=== PATIENT | male | born 1930 | race Caucasian/White ===

== ENCOUNTER 2016-06-28 19:40 | Inpatient (IN) ==
[2016-06-28] MEDS ORDERED: SODIUM CHLORIDE 1,000 ML IV STA (20:20)
--- NOTE | 2016-06-28 20:24 | ED.PDOC ---
General ED Provider: Dr. JONAS HWANG Chief Complaint: Fall Stated Complaint: Holden is a who comes to the ER by ambulace after family went to the home saw him from the window laying down on the floor. They called the police who came with EMS broke the door open found him awake but blood glucose was unable to read since it was too high and blood pressure was high in the 180s. He denied any pain. Does not know when he fell and states he had a red bull and used his morning insluin. Per daughter he has frequent falls and wishes he be placed in the long term. Time Seen by Physician: 20:22 Mode of Arrival: Ambulance Information Source: Patient, EMT Primary Care Provider: JAREK ALBA Nursing and Triage Documentation Reviewed and Agree: Yes Review of Systems - Review Of Systems Constitutional: Reports: Weakness, Loss of appetite Respiratory: Reports: No symptoms Cardiac: Reports: No symptoms GI: Reports: No symptoms : Reports: No symptoms Musculoskeletal: Reports: Other (falls) Skin: Reports: Rash (Seborrheic dermatitis ) Neurological: Reports: Anxiety, Cognitive dysfunction (Mild cognitive imparement ) All Other Systems: Reviewed and Negative Past Medical History - Past Medical History Previously Healthy: No Endocrine: Reports: DM 2 Cardiovascular: Reports: Hypertension Respiratory: Reports: None Hematological: Reports: None Gastrointestinal: Reports: None Genitourinary: Reports: None Neuro/Psych: Reports: None Musculoskeletal: Reports: None Cancer: Reports: None Other Pertinent Past Medical History: Multiple falls. - Surgical History General Surgical History: Reports: None - Family History Family History: Reports: Unknown - Social History Smoking Status: Never smoker Hx Substance Use: No Alcohol Screening: None Pt Occupation: Retired Lives: Alone - Immunizations Tetanus Shot up to Date: No Physical Exam - Physical Exam Appearance: Ill-appearing Ill-appearing: Moderate Eyes: LÓPEZ, EOMI, Conjunctiva clear ENT: Dry mucosa Neck: Supple Respiratory: Airway patent, Breath sounds clear, Breath sounds equal, Respirations nonlabored Cardiovascular: RRR, Pulses normal, No rub, No murmur GI/: Soft, Nontender Musculoskeletal: Normal strength, ROM intact, No edema, No calf tenderness Skin: Warm, Dry Neurological: Alert, Oriented (x 2) Psychiatric: Anxious Interpretation - Radiology Interpretation Radiology Interpretation By: Radiologist Radiology Results: Positive Exam Interpreted: CT Scan (chest with Bilateral Pneumonia. ), Other (CT head no fracture. ) Physician Notification - Case Discussed Physician Notified: Luis Time of Notification: 22:58 (Admit To SCU ) Critical Care Note - Critical Care Note Total Time (mins): 55 Course - Course Hematology/Chemistry: 06/28/16 20:40 06/29/16 01:15 Orders, Labs, Meds: Lab Review 06/28/16 06/28/16 06/28/16 20:16 20:40 21:35 WBC 7.81 RBC 4.40 L Hgb 14.0 Hct 37.6 L MCV 85.5 MCH 31.8 H MCHC 37.2 H RDW Coeff of Elías 12.3 Plt Count 153 Immature Gran % (Auto) 0.5 Neut % (Auto) 74.9 Lymph % (Auto) 12.3 [place] % (Auto) 12.0 H Eos % (Auto) 0.0 Baso % (Auto) 0.3 Immature Gran # (Auto) 0.0 Neut # 5.9 Lymph # 1.0 [place] # 0.9 Eos # 0.0 Baso # 0.0 Puncture Site Lrad O2 Saturation 95.0 ABG pH 7.427 ABG pCO2 23.0 L ABG pO2 69.0 L ABG HCO3 15.2 L ABG Total CO2 16 L ABG Base Excess -9 L Kemal Test + FiO2 % 21.0 Sodium 126 L Potassium 5.4 H Chloride 94 L Carbon Dioxide 15 L Anion Gap 22.4 BUN 77 H* Creatinine 3.06 H Estimated GFR (MDRD) 20.00 BUN/Creatinine Ratio 25.16 Glucose 745 H* Lactic Acid 29.2 H Calcium 9.3 Total Bilirubin 1.03 AST 33 ALT 36 Alkaline Phosphatase 63 Total Creatine Kinase 317 CK-MB (CK-2) 5.8 H* CK-MB (CK-2) % 1.76060 Troponin I 0.0480 Total Protein 7.6 Albumin 3.4 Globulin 4.2 Albumin/Globulin Ratio 0.81 Amylase 30 Lipase 36 Procalcitonin 0.31 Urine Color Dark Urine Clarity Clear Urine pH 5.0 Ur Specific [place] 1.020 Urine Protein 2+ Urine Glucose (UA) 2+ Urine Ketones Trace Urine Blood 1+ Urine Nitrite Negative Urine Bilirubin Negative Urine Urobilinogen 0.2 Ur Leukocyte Esterase Negative Urine Microscopic RBC 2-5 Ur Squamous Epith Cells 2-5 Amorphous Sediment 2+ Urine Bacteria Trace Hyaline Casts 2-5 Granular Casts 5-10 Orders Category Date Time Status ADMIT PATIENT INPATIENT .TO SCU (MONITORED BED) ADMISSION 06/28/16 23:06 Completed ABG DRAW REQUEST Stat CARDIO 06/28/16 20:18 Completed EKG-(ED ONLY) Stat CARDIO 06/28/16 20:18 Completed ACTIVITY .BR with BRP CARE 06/28/16 23:08 Active BLOOD GLUCOSE MONITORING Q1HR CARE 06/28/16 23:04 Active CASE MANAGEMENT CONSULT ONCE CARE 06/28/16 23:06 Active GIVE HS SNACK 2100 CARE 06/28/16 23:11 Active INTAKE & OUTPUT Q8HR CARE 06/28/16 23:06 Active TELEMETRY MONITORING TELE CARE 06/28/16 23:07 Active VITAL SIGNS Q4HR CARE 06/28/16 23:08 Active ADA 1800 EDILSON. DIET DIETARY 06/28/16 Breakfast Ordered HS SNACK DIETARY 06/28/16 Dinner Ordered ED ACCUCHECK ASSESSMENT .ONCE EMERGENCY 06/28/16 22:54 Active ED IV/MEDIPORT/POWERPORT .ONCE EMERGENCY 06/28/16 20:20 Active ABG Stat LAB 06/28/16 20:16 Completed AMYLASE Stat LAB 06/28/16 20:40 Completed BASIC METABOLIC PANEL Q4HR LAB 06/29/16 01:15 Completed BASIC METABOLIC PANEL Q4HR LAB 06/29/16 05:00 Ordered BASIC METABOLIC PANEL Q4HR LAB 06/29/16 09:00 Ordered BASIC METABOLIC PANEL Q4HR LAB 06/29/16 13:00 Ordered BASIC METABOLIC PANEL Q4HR LAB 06/29/16 17:00 Ordered BASIC METABOLIC PANEL Q4HR LAB 06/29/16 21:00 Ordered BASIC METABOLIC PANEL Q4HR LAB 06/30/16 01:00 Ordered BASIC METABOLIC PANEL Q4HR LAB 06/30/16 05:00 Ordered BLOOD CULTURE Stat LAB 06/28/16 23:00 Received CBC W/ AUTO DIFF DAILY@0600 LAB 06/29/16 06:00 Ordered CBC W/ AUTO DIFF DAILY@0600 LAB 06/30/16 06:00 Ordered CBC W/ AUTO DIFF DAILY@0600 LAB 07/01/16 06:00 Ordered CBC W/ AUTO DIFF DAILY@0600 LAB 07/02/16 06:00 Ordered CBC W/ AUTO DIFF DAILY@0600 LAB 07/03/16 06:00 Ordered CBC W/ AUTO DIFF DAILY@0600 LAB 07/04/16 06:00 Ordered CBC W/ AUTO DIFF DAILY@0600 LAB 07/05/16 06:00 Ordered CBC W/ AUTO DIFF DAILY@0600 LAB 07/06/16 06:00 Ordered CBC W/ AUTO DIFF DAILY@0600 LAB 07/07/16 06:00 Ordered CBC W/ AUTO DIFF DAILY@0600 LAB 07/08/16 06:00 Ordered CBC W/ AUTO DIFF DAILY@0600 LAB 07/09/16 06:00 Ordered CBC W/ AUTO DIFF DAILY@0600 LAB 07/10/16 06:00 Ordered CBC W/ AUTO DIFF DAILY@0600 LAB 07/11/16 06:00 Ordered CBC W/ AUTO DIFF DAILY@0600 LAB 07/12/16 06:00 Ordered CBC W/ AUTO DIFF DAILY@0600 LAB 07/13/16 06:00 Ordered CBC W/ AUTO DIFF DAILY@0600 LAB 07/14/16 06:00 Ordered CBC W/ AUTO DIFF DAILY@0600 LAB 07/15/16 06:00 Ordered CBC W/ AUTO DIFF DAILY@0600 LAB 07/16/16 06:00 Ordered CBC W/ AUTO DIFF DAILY@0600 LAB 07/17/16 06:00 Ordered CBC W/ AUTO DIFF DAILY@0600 LAB 07/18/16 06:00 Ordered CBC W/ AUTO DIFF Stat LAB 06/28/16 20:40 Completed COMPREHENSIVE METABOLIC PANEL Stat LAB 06/28/16 20:40 Completed CREATINE KINASE Stat LAB 06/28/16 20:40 Completed LACTIC ACID Stat LAB 06/28/16 20:40 Completed LIPASE Stat LAB 06/28/16 20:40 Completed PROCALCITONIN Stat LAB 06/28/16 20:40 Completed TROPONIN I Stat LAB 06/28/16 20:40 Completed UA [URINALYSIS C & S IF INDICATED] Stat LAB 06/28/16 21:35 Completed 0.9 % Sodium Chloride [Saline Flush] MEDS 06/28/16 20:20 Ordered 1 syr IVF PRN PRN 0.9 % Sodium Chloride [Sodium Chloride] 100 ml MEDS 06/28/16 23:15 Ordered Insulin Regular, Human [Humulin R] 100 unit IV 5 unit/hr Amlodipine Besylate [Norvasc] MEDS 06/29/16 09:00 Ordered 5 mg PO DAILY Azithromycin [Zithromax] MEDS 04/27/17 23:06 Discontinued 500 mg PO ONCE STA Ceftriaxone Sodium [Rocephin] MEDS 06/28/16 23:03 Discontinued 1 gm .ROUTE .STK-MED ONE Ceftriaxone Sodium [Rocephin] 1 gm MEDS 06/28/16 22:53 Discontinued 0.9 % Sodium Chloride [Sodium Chloride] 50 ml IV ONCE Enoxaparin Sodium [Lovenox] MEDS 06/29/16 09:00 Ordered 30 mg SUBCUT DAILY Losartan Potassium [Cozaar] MEDS 06/29/16 09:00 Ordered 25 mg PO DAILY Omeprazole [Prilosec] MEDS 06/29/16 09:00 Ordered 20 mg PO DAILY Ondansetron HCl/Pf [Zofran 4 mg/2 ml] MEDS 06/28/16 23:06 Ordered 4 mg IVP Q6H PRN Sodium Chloride 0.9% [Sodium Chloride] 1,000 ml MEDS 06/28/16 23:30 Ordered IV 150 mls/hr Sodium Chloride 0.9% [Sodium Chloride] 1,000 ml MEDS 06/28/16 20:20 Discontinued IV BOLUS RESUSCITATION STATUS Routine OTHERS 06/28/16 23:[address] ABDOMEN/PELVIS WO CONTRAST Stat RADS 06/28/16 21:[address] CERVICAL SPINE W/O CONTRAST Stat RADS 06/28/16 20:[address] CHEST W/O CONTRAST Stat RADS 06/28/16 21:[address] HEAD W/O CONTRAST Stat RADS 06/28/16 20:18 Completed OT CONSULTATION Routine THERAPIES 06/28/16 Ordered PT CONSULT Routine THERAPIES 06/28/16 Ordered Medications Generic Name Dose Route Start Last Admin Trade Name Freq PRN Reason Stop Dose Admin Amlodipine Besylate 5 mg 06/29/16 09:00 Norvasc PO DAILY JOIE Enoxaparin Sodium 30 mg 06/29/16 09:00 Lovenox SUBCUT DAILY JOIE Insulin Human Regular 100 unit 100 mls @ 5 mls/hr 06/28/16 23:15 06/29/16 00: 47 / Sodium Chloride IV 5 unit/hr .Q20H JOIE 5 mls/hr Protocol Administration 5 UNIT/HR Sodium Chloride 1,000 mls @ 150 mls/hr 06/28/16 23:30 06/29/16 00:01 Sodium Chloride IV 150 mls/hr .Q6H40M JOIE Administration Losartan Potassium 25 mg 06/29/16 09:00 Cozaar PO DAILY JOIE Omeprazole 20 mg 06/29/16 09:00 Prilosec PO DAILY JOIE Ondansetron HCl 4 mg 06/28/16 23:06 Zofran 4 Mg/2 Ml IVP Q6H PRN Nausea / Vomiting Sodium Chloride 1 syr 06/28/16 20:20 Saline Flush IVF PRN PRN To flush IV Discontinued Medications Generic Name Dose Route Start Last Admin Trade Name Freq PRN Reason Stop Dose Admin Azithromycin 500 mg 06/28/16 23:06 06/29/16 00:26 Zithromax PO 06/28/16 23:07 500 mg ONCE STA Administration Sodium Chloride 1,000 mls @ 1,000 mls/hr 06/28/16 20:20 06/28/16 20:53 Sodium Chloride IV 06/28/16 21:19 500 mls/hr BOLUS STA Administration Ceftriaxone Sodium 1 gm/ 50 mls @ 75 mls/hr 06/28/16 22:53 06/28/16 23:11 Sodium Chloride IV 06/28/16 23:32 75 mls/hr ONCE STA Administration Vital Signs: Temp Pulse Resp BP Pulse Ox 06/28/16 19:40 97.6 F 91 H 16 123/81 95 Departure - Departure Time of Disposition: 23:00 Disposition: ADMITTED INPATIENT Discharge Problem: Falls, Dehydration Pneumonia Qualifiers: Pneumonia type: due to unspecified organism Laterality: bilateral Lung location : lower lobe of lung Qualifier Code: (J18.9) Pneumonia, unspecified organism Hyperglycemia due to type 2 diabetes mellitus Qualifiers: Diabetes mellitus hospice care consultant insulin use: with usp use Qualifier Code: ( E11.65) Type 2 diabetes mellitus with hyperglycemia Acute renal failure (ARF) Qualifiers: Acute renal failure type: unspecified Qualifier Code: (N17.9) Acute kidney failure, unspecified Condition: Fair Pt referred to PMD for follow-up: No Allergies/Adverse Reactions: Allergies No Known Allergies Allergy (Unverified 02/08/14 09:40) Home Medications: Ambulatory Orders Amlodipine Besylate [Norvasc] 5 mg PO DAILY 10/04/14 Insulin Aspart Protam & Aspart [Novolog Mix 70-30 Vial] 100 unit SQ BID Omeprazole [Prilosec] 20 mg PO DAILY 10/04/14 Losartan Potassium [Cozaar] 25 mg PO DAILY 06/28/16 Disposition Discussed With: Patient
[2016-06-28 20:47] LABS: ABG PH 7.427 (7.35-7.45)
[2016-06-28 20:49] LABS: ABG BASE EXCESS -9 (-2.0-2.0)
[2016-06-28 20:50] LABS: ABG HCO3 15.2 (22.0-26.0); ABG TCO2 16 (22.0-28.0)
[2016-06-28 20:52] LABS: BASOPHILS % (AUTO) 0.3 % (0.0-3.0); HEMATOCRIT 37.6 % (42.0-52.0); IMMATURE GRANULOCYTE % (AUTO) 0.5 % (0.0-5.0); LYMPHOCYTES % (AUTO) 12.3 (10.0-50.0); MEAN CORPUSCULAR HEMOGLOBIN 31.8 pg (27.0-31.0); MEAN CORPUSCULAR HGB CONC 37.2 (31.8-35.4); MEAN CORPUSCULAR VOLUME 85.5 fl (80.0-94.0); MONOCYTES # (AUTO) 0.9 K/uL (0.4-2.0); NEUTROPHILS # (AUTO) 5.9 K/ul (2.0-6.9); NEUTROPHILS % (AUTO) 74.9; PLATELET COUNT 153 10^3/uL (140-440); WHITE BLOOD COUNT 7.81 K/ul (4.2-10.2)
--- NOTE | 2016-06-28 21:01 | CT ---
EXAM: CT of the head without contrast. HISTORY: Trauma. Fall at home.. COMPARISON: None. TECHNIQUE: Contiguous axial images at 5 mm intervals were obtained from the base of the skull to th e vertex the calvarium. No contrast was given. FINDINGS: The CSF containing spaces are diffusely enlarged consistent with atrophy. The ventricles are enlarged. There are no extraaxial fluid collections. There is no evidence of an acute intracr anial hemorrhage. There are no masses or mass effect. Hypodensities are seen in the periventricula r white matter consistent with chronic ischemic changes from small vessel disease. There are no acu te vascular territory infarcts. Carotid artery and vertebral artery calcifications are seen. The osseous structures are normal. There is a soft tissue density in the nasal airway on the right andres uring up to 2.1 cm. The extracranial soft tissues are otherwise unremarkable. IMPRESSION: 1. Chronic age-related changes. No acute abnormalities. 2. Ventriculomegaly. 3. 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
--- NOTE | 2016-06-28 21:04 | CT ---
EXAM: CT of the cervical spine without contrast. HISTORY: Fall. PROCEDURE: Contiguous axial CT images of the cervical spine without contrast with coronal and sagit poonam reformats. FINDINGS: There is normal alignment of the cervical vertebral bodies and facets. The vertebral body heights are maintained. There is multilevel disc space narrowing. There are posterior osteophytes at multiple levels of the cervical spine. There is multilevel neural foraminal narrowing. There i s multilevel facet arthropathy. The C1-2 relationship is maintained. No prevertebral soft tissue a bnormality. Impression: No evidence of fracture. Normal alignment of the cervical spine with degenerative changes as described. Multilevel neural foraminal narrowing.
[2016-06-28 21:23] LABS: ALBUMIN 3.4 g/dL (3.4-5.0); ALBUMIN/GLOBULIN RATIO 0.81; ANION GAP 22.4; BILIRUBIN,TOTAL 1.03 mg/dL (0.00-1.20); BUN/CREATININE RATIO 25.16; CALCIUM 9.3 mg/dL (8.2-10.2); CREATININE 3.06 mg/dL (0.60-1.10); POTASSIUM 5.4 mmol/L (3.5-5.1); TOTAL PROTEIN 7.6 g/dL (5.8-8.1); TROPONIN I 0.048 ng/ml (0.0000-0.4000)
[2016-06-28 21:26] LABS: CREATINE KINASE MB 5.8 ng/ml (0.0-3.6)
[2016-06-28 21:45] LABS: BILIRUBIN,URINE Negative (NEGATIVE); KETONES,URINE Trace (NEGATIVE); LEUKOCYTE ESTERASE ,URINE Negative (NEGATIVE); NITRITE,URINE Negative (NEGATIVE); PROTEIN,URINE 2+ (NEGATIVE); URINE, BLOOD 1+ (NEGATIVE)
[2016-06-28 22:00] LABS: ADD URINE MICROSCOPIC YES
[2016-06-28 22:01] LABS: BACTERIA,URINE TRACE (NOT PRESENT)
--- NOTE | 2016-06-28 22:13 | CT ---
EXAM: CT of the chest without contrast. HISTORY: Trauma. PROCEDURE: Contiguous axial CT images of the chest without contrast with coronal and sagittal refor mats. FINDINGS: The exam is limited without IV contrast. The heart is within normal limits in size. The t horacic aorta is within normal limits in diameter. There are coronary artery calcifications. There are calcified hilar lymph nodes. There is bilateral bronchiectasis. There are bibasilar infiltrates and minimal right basilar consolidation. There are stable chronic anterior wedging deformities at mu ltiple levels of the thoracic spine compared with prior exam of 09/24/2007. Impression: No evidence of acute traumatic injury to the chest. Bibasilar infiltrates and minimal right basilar consolidation suspicious for pneumonia. Bilateral bronchiectasis. Stable chronic anterior wedging deformities in the thoracic spine as described.
--- NOTE | 2016-06-28 22:20 | CT ---
Exam: CT of the abdomen and pelvis without contrast History: Fall Technique: [address] of the abdomen and pelvis without intravascular contrast FINDINGS: Bilateral lower lobe nonspecific nodular infiltrates. No significant liver abnormality. T he adrenals, pancreas and spleen are unremarkable. The stomach and hiatus are unremarkable.The gallb ladder appears normal. There is a 3.9 x 2.4 cm cyst in the right kidney. The kidneys and collectin g system are unremarkable otherwise. The appendix is not seen. Bowel loops demonstrate normal calib er. No inflamatory change seen in the mesentery or retroperitoneum. Atherosclerotic calcification of the aorta without aneurysm. Left colonic diverticulosis. Colonic diverticulosis of the sigmoid. No inflammation of the pelvic fat. Normal pelvic genitourin quoc structures. No acute findings of the skeleton.. Thoracolumbar scoliosis with endplate spondylo sis. 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 Impression: 1. No inflammatory process, bowel or urinary obstruction is seen. 2. Colonic diverticulosis without evidence of acute diverticulitis. 3. No evidence of injury to solid or hollow intra-abdominal viscera.
[2016-06-28] MEDS ORDERED: ROCEPHIN 1 GM in SODIUM CHLORIDE 50 ML IV STA (22:53)
[2016-06-28] MEDS ORDERED: ROCEPHIN ONE (23:03)
[2016-06-28] MEDS ORDERED: ZOFRAN 4 MG/2 ML IVP PRN (23:06)
[2016-06-28] MEDS ORDERED: ZITHROMAX PO STA (23:06)
[2016-06-28] MEDS ORDERED: HUMULIN R 100 UNIT in SODIUM CHLORIDE 100 ML IV SCH (23:15)
[2016-06-29] MEDS: SODIUM CHLORIDE 1,000 ML IV SCH ×3 (00:01→17:19)
[2016-06-29 00:35] VITALS: BMI 26.3
[2016-06-29] MEDS ORDERED: HUMULIN R ONE (00:39)
[2016-06-29 02:14] LABS: ANION GAP 22.1; BUN/CREATININE RATIO 25.35; CALCIUM 9.5 mg/dL (8.2-10.2); CREATININE 2.84 mg/dL (0.60-1.10); POTASSIUM 5.1 mmol/L (3.5-5.1)
[2016-06-29] MEDS: PRILOSEC PO SCH (05:51)
[2016-06-29 06:10] LABS: BASOPHILS % (AUTO) 0.2 % (0.0-3.0); HEMATOCRIT 36.3 % (42.0-52.0); HEMOGLOBIN 13.2 g/dl (14.0-18.0); IMMATURE GRANULOCYTE % (AUTO) 0.4 % (0.0-5.0); LYMPHOCYTES # (AUTO) 1.3 K/uL (0.60-3.4); LYMPHOCYTES % (AUTO) 13.3 (10.0-50.0); MEAN CORPUSCULAR HEMOGLOBIN 31.4 pg (27.0-31.0); MEAN CORPUSCULAR HGB CONC 36.4 (31.8-35.4); MEAN CORPUSCULAR VOLUME 86.2 fl (80.0-94.0); MONOCYTES # (AUTO) 0.9 K/uL (0.4-2.0); MONOCYTES % (AUTO) 9.5 (0-10); NEUTROPHILS # (AUTO) 7.2 K/ul (2.0-6.9); NEUTROPHILS % (AUTO) 76.6; PLATELET COUNT 147 10^3/uL (140-440); RED BLOOD COUNT 4.21 10^6/ul (4.70-6.10); WHITE BLOOD COUNT 9.43 K/ul (4.2-10.2)
[2016-06-29 06:41] LABS: ANION GAP 17.1; BUN/CREATININE RATIO 28.75; CALCIUM 9.1 mg/dL (8.2-10.2); CREATININE 2.33 mg/dL (0.60-1.10); POTASSIUM 4.1 mmol/L (3.5-5.1)
[2016-06-29] MEDS: COZAAR PO SCH (08:37)
[2016-06-29] MEDS: NORVASC PO SCH (08:38)
[2016-06-29] MEDS: LOVENOX SUBCUT SCH (08:41)
[2016-06-29] MEDS ORDERED: PRILOSEC PO SCH (09:00)
[2016-06-29 10:04] LABS: ANION GAP 15.5; BUN/CREATININE RATIO 28.71; CALCIUM 9.2 mg/dL (8.2-10.2); CREATININE 2.02 mg/dL (0.60-1.10); POTASSIUM 3.5 mmol/L (3.5-5.1)
[2016-06-29 10:08] LABS: CREATINE KINASE MB 5.9 ng/ml (0.0-3.6)
[2016-06-29 14:05] LABS: ANION GAP 13.5; BUN/CREATININE RATIO 29.68; CALCIUM 8.7 mg/dL (8.2-10.2); CREATININE 1.92 mg/dL (0.60-1.10); POTASSIUM 4.5 mmol/L (3.5-5.1)
[2016-06-29 17:34] LABS: BUN/CREATININE RATIO 29.76; CALCIUM 9.1 mg/dL (8.2-10.2); CREATININE 1.68 mg/dL (0.60-1.10)
[2016-06-29] MEDS ORDERED: [UNRECOGNIZED DRUG - OTHER] SQ SCH (21:00)
[2016-06-29] MEDS ORDERED: INSULIN ASPART PROTAM SQ SCH (21:00)
[2016-06-29] MEDS ORDERED: ASPART SQ SCH (21:00)
[2016-06-29 21:30] LABS: BUN/CREATININE RATIO 29.05; CREATININE 1.48 mg/dL (0.60-1.10)
[2016-06-30] MEDS: HUMULIN R SUBCUT PRN ×7 (00:02→18:05)
[2016-06-30 03:54] LABS: BUN/CREATININE RATIO 26.51; CALCIUM 8.9 mg/dL (8.2-10.2); CREATININE 1.32 mg/dL (0.60-1.10)
[2016-06-30] MEDS: PRILOSEC PO SCH (05:29)
[2016-06-30 07:15] LABS: BASOPHILS % (AUTO) 0.3 % (0.0-3.0); EOSINOPHILS % (AUTO) 0.1 % (0.0-7.0); HEMATOCRIT 33.8 % (42.0-52.0); HEMOGLOBIN 12.2 g/dl (14.0-18.0); IMMATURE GRANULOCYTE % (AUTO) 0.7 % (0.0-5.0); LYMPHOCYTES # (AUTO) 1.3 K/uL (0.60-3.4); LYMPHOCYTES % (AUTO) 18.3 (10.0-50.0); MEAN CORPUSCULAR HEMOGLOBIN 31.7 pg (27.0-31.0); MEAN CORPUSCULAR HGB CONC 36.1 (31.8-35.4); MEAN CORPUSCULAR VOLUME 87.8 fl (80.0-94.0); MONOCYTES # (AUTO) 0.8 K/uL (0.4-2.0); MONOCYTES % (AUTO) 10.6 (0-10); NEUTROPHILS # (AUTO) 5.1 K/ul (2.0-6.9); PLATELET COUNT 149 10^3/uL (140-440); RED BLOOD COUNT 3.85 10^6/ul (4.70-6.10); WHITE BLOOD COUNT 7.26 K/ul (4.2-10.2)
[2016-06-30 07:36] LABS: ANION GAP 11.8; CALCIUM 8.9 mg/dL (8.2-10.2); CREATININE 1.26 mg/dL (0.60-1.10); POTASSIUM 3.8 mmol/L (3.5-5.1)
[2016-06-30 08:52] LABS: BUN/CREATININE RATIO 25.39
[2016-06-30] MEDS: COZAAR PO SCH (09:17)
[2016-06-30] MEDS: LOVENOX SUBCUT SCH (09:17)
[2016-06-30] MEDS: NORVASC PO SCH (09:17)
[2016-06-30] MEDS: HUMALOG MIX 75-25 SUBCUT SCH (18:07)
[2016-06-30] MEDS ORDERED: DEXTROSE 50%-WATER ABBOJECT IVP STA (22:50)
[2016-06-30] MEDS ORDERED: GLUTOSE 15 PO STA (22:50)
[2016-06-30] MEDS: SODIUM CHLORIDE 1,000 ML IV SCH (23:27)
[2016-07-01] MEDS: HUMULIN R SUBCUT PRN ×2 (01:49→03:05)
[2016-07-01 05:48] LABS: BASOPHILS % (AUTO) 0.3 % (0.0-3.0); EOSINOPHILS % (AUTO) 0.3 % (0.0-7.0); HEMATOCRIT 38.5 % (42.0-52.0); HEMOGLOBIN 13.7 g/dl (14.0-18.0); IMMATURE GRANULOCYTE % (AUTO) 0.8 % (0.0-5.0); LYMPHOCYTES # (AUTO) 1.4 K/uL (0.60-3.4); MEAN CORPUSCULAR HEMOGLOBIN 31.4 pg (27.0-31.0); MEAN CORPUSCULAR HGB CONC 35.6 (31.8-35.4); MEAN CORPUSCULAR VOLUME 88.1 fl (80.0-94.0); MONOCYTES # (AUTO) 0.8 K/uL (0.4-2.0); MONOCYTES % (AUTO) 9.7 (0-10); NEUTROPHILS # (AUTO) 5.7 K/ul (2.0-6.9); NEUTROPHILS % (AUTO) 70.9; PLATELET COUNT 193 10^3/uL (140-440); RED BLOOD COUNT 4.37 10^6/ul (4.70-6.10); WHITE BLOOD COUNT 7.96 K/ul (4.2-10.2)
[2016-07-01] MEDS: PRILOSEC PO SCH (06:27)
[2016-07-01] MEDS: HUMALOG MIX 75-25 SUBCUT SCH ×2 (09:00→17:55)
[2016-07-01] MEDS: LOVENOX SUBCUT SCH (09:00)
[2016-07-01] MEDS: COZAAR PO SCH (09:00)
[2016-07-01] MEDS: NORVASC PO SCH (09:01)
--- NOTE | 2016-07-01 12:01 | DI ---
EXAM: Chest two views HISTORY: Follow up pneumonia COMPARISON: 09/24/2007 TECHNIQUE: Two views of the chest were performed FINDINGS: The lungs are clear. There is no pleural effusion or pneumothorax. The heart is normal in size. The mediastinal contour is normal. There are no acute abnormalities of the bones. IMPRESSION: No acute cardiopulmonary process.
[2016-07-01] MEDS: SODIUM CHLORIDE 1,000 ML IV SCH (15:14)
[2016-07-02] MEDS: PRILOSEC PO SCH (06:28)
[2016-07-02] MEDS: NORVASC PO SCH (09:05)
[2016-07-02] MEDS: COZAAR PO SCH (09:05)
[2016-07-02] MEDS: LOVENOX SUBCUT SCH (09:05)
[2016-07-02] MEDS: HUMALOG MIX 75-25 SUBCUT SCH ×2 (09:06→18:40)
--- NOTE | 2016-07-02 16:18 | RS.PTINEVL ---
Subjective - Patient information Date of Evaluation: 07/02/16 Usual Living Arrangement: Alone Subjective Information/ Patient Comments:: Patient states "I can't do as much as I could when I was 30, but I can do what ever I need to". Agrees to ambulate. Denies dizziness. States he does not and will not use an assistive device at home. 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 Balance - Sitting Balance and Reactions Static Sitting Balance: Good Dynamic Sitting Balance: Good - Standing Balance and Reactions Static Standing Balance: Good Dynamic Standing Balance: Good (-) Functional Mobility - Bed Mobility Rolling R/L: Independent Scooting: Independent Supine to Sit: Independent Sit to Supine: Independent - Transfers Sit to Stand: Supervision, 1 person assist Stand to Sit: Supervision, 1 person assist Stand Pivot Transfers: Supervision, 1 person assist Ambulation - Ambulation Weight Bearing Status: FWB Assistive Device Used: No Assistive Device Distance: 150 feet Assistance needed with Ambulation: Supervision, 1 person assist Ambulation Comments: Patient ambulated without shoes and without assistive device. Patient distributes a lot of his weight on his heels and displays a short stride. Demonstrates steady gait and no loss of balance. Treatment time - Time with patient Total treatment time: 16 (mins) Assessment - Assessment Further Therapy Indicated?: No Comments: Mr. Ruiz demonstrates a high level of function with bed mobility, transfers, and ambulation. He demonstrates no skilled therapy need at this time. Recommend nursing to continue to walk patient to maintain his level of function during this hospitalization. Plan Duration of Treatment: One Time Treatment Anticipated Discharge Destination: Home
[2016-07-03] MEDS: PRILOSEC PO SCH (05:34)
[2016-07-03] MEDS ORDERED: HUMALOG MIX 75-25 SUBCUT SCH ×2 (08:06→08:29)
[2016-07-03] MEDS: COZAAR PO SCH (08:30)
[2016-07-03] MEDS: NORVASC PO SCH (08:32)
--- NOTE | 2016-07-03 09:51 | HP ---
DISCUSSION: Mr. Ruiz is a 85 year old gentleman with a history of insulin treated type 2 [facility] L[facility]. Mr. Ruiz does have some cognitive dysfunction, hypertension and again insulin treated diabetes. He presented to the emergency department by EMS after being found in the floor at home. His blood glucose was reading high on a local monitor and blood pressure was elevated. In evaluation by Dr. Ramirez in the emergency department he is found evidence of pneumonia and in consultation with Dr. Smith who was diamond powder mixer for me he endorsed the admission and the patient was admitted to my services. In addition he was found to have evidence of renal dysfunction presumably PURNIMA and was admitted to my services for IV hydration, antibiotics and treatment for pneumonia and PURNIMA. MEDICATIONS: Norvasc NovoLog Prilosec Cozaar ALLERGIES: No known drug allergies PAST MEDICAL HISTORY: History of hypertension History of cognitive impairment History of diabetes type 2 GERD History of hypertension SURGICAL HISTORY: None reported SOCIAL HISTORY: He resides alone. No history of alcohol or tobacco use as noted. FAMILY HISTORY: Review and found not pertinent to discussion. REVIEW OF SYSTEMS: No headaches, visual changes, tinnitus, hemoptysis, blood in the stool, urinary symptoms or seizures. He has had some cough with congestion. Denies any fever or chills or abdominal pain. PHYSICAL EXAMINATION: V/S: Temperature 97.6, pulse 91, respirations 16 and blood pressure 123/81. HEENT: Pupils are round. NECK: Supple. CHEST: Scattered rales with few rancorous sounds CARDIOVASCULAR: Regular rate and rhythm. ABDOMEN: Soft, nontender. EXTREMITIES: Distal extremities without cyanosis or edema. ASSESSMENT: 1. Pneumonia 2. Hypertension 3. Diabetes 4. PURNIMA PLAN: 1. Hydration 2. Will follow renal function 3. Continue antibiotics 4. Will need to get physical therapy because he is quite debilitated 5. Please see orders. MTDD
--- NOTE | 2016-07-03 10:05 | DS ---
PRINCIPAL DIAGNOSIS: 1. Pneumonia 2. PURNIMA 3. Diabetes, insulin treated 4. Hypertension DISCUSSION: Mr. Ruiz is a 85 year old gentleman with a history of insulin treated type 2 [facility] L[facility]. Mr. Ruiz does have some cognitive dysfunction, hypertension and again insulin treated diabetes. He presented to the emergency department by EMS after being found in the floor at home. His blood glucose was reading high on a local monitor and blood pressure was elevated. In evaluation by Dr. Bernal in the emergency department he is found evidence of pneumonia and in consultation with Dr. Smith who was brand activation manager for me he endorsed the admission and the patient was admitted to my services. In addition he was found to have evidence of renal dysfunction presumably PURNIMA and was admitted to my services for IV hydration, antibiotics and treatment for pneumonia and PURNIMA. CLINICAL COURSE: The patient was admitted and started on general IV hydrated and his renal function returned to base. Cognitively he was about the same. We had seen by Physical therapy and was able to ambulate about the room. I met with his daughter a couple days prior to discharge. I was leery of him returning home. I pointed out the sentence from Dr. Bernal that she insisted that he go to a [place], she denied that and she stated that if all possible she would like to keep him in his home because of the cognitive issues and she thought he would be better and I agree. The only issue is going to be concerning his diabetes because I think he is going to be at significant risk for hypoglycemia if he doesn't east regularly. She promised that she is going to check on him and the neighbors ( the Lock family) were going to check on him regularly. We are also going to get home health to see Mr. Ruiz as well. In terms of his pneumonia a repeat chest x-ray revealed his lungs to be clear. His oxygen saturation had improved so he would not require oxygen at home. At this point he will be discharged back to home and I'm going to recommend Home Health with physical therapy to see him as well as nursing to monitor his blood sugars as well as making sure that he eat regularly. He will be need to be monitored for signs and symptoms of hypoglycemia. I would like to see him in the office in one week. In terms of home health I think he would benefit from this as he is debilitated and home bound at least temporarily for the next four weeks. MTDD
[2016-07-03 10:22] VITALS: BP 153/80; TEMP 97.6
[2016-07-03] MEDS: HUMALOG MIX 75-25 SUBCUT SCH (15:57)
== END 2016-07-03 13:55 | disposition home or self-care (01) | DRG 194 ==
LOC: ED 19:40 → SCU 23:23
PROVIDERS: ADMIT Family Medicine; ATTEND Family Medicine
DX: J18.9 Pneumonia, unspecified organism (principal); N17.9 Acute kidney failure, unspecified; E11.65 Type 2 diabetes mellitus with hyperglycemia; G31.84 Mild cognitive impairment of uncertain or unknown etiology; R53.1 Weakness; I10 Essential (primary) hypertension; W19.XXXA Unspecified fall, initial encounter; Z91.81 History of falling; Y92.009 Unspecified place in unspecified non-institutional (private) residence as the place of occurrence of the external cause; Z79.4 Long term (current) use of insulin; Z79.899 Other long term (current) drug therapy
CPT/HCPCS: 36415; 80048; 80053; 81001; 82150; 82550; 82553; 82803; 82962; 83036; 83605; 83690; 84145; 84484; 85025; 87040; 87081; 93005; 93010; 96361; 96365; 99284